=== PATIENT | female | born 1995 | race Hispanic/Latino ===

== ENCOUNTER 2022-08-02 17:19 | Emergency (ER) | payer OTHER ==
[~2022-08-02] VITALS: Ht 154.9 cm; Wt 90.7 kg
[2022-08-02 17:31] VITALS: BP 144/93
[2022-08-02] MEDS ORDERED: CEPH500B PO (18:01)
[2022-08-02] MEDS ORDERED: MOXIOS OS (18:01)
== END 2022-08-02 19:35 | disposition home or self-care (01) ==
LOC: EDH 17:19
DX: H10.89 Other conjunctivitis (principal); L60.0 Ingrowing nail; Z79.899 Other long term (current) drug therapy; Z98.890 Other specified postprocedural states